=== PATIENT | male | born 1990 | race Caucasian/White ===

== ENCOUNTER 2017-08-22 05:34 | Emergency (ER) | payer BC ==
[2017-08-22] MEDS ORDERED: Metoclopramide 10 MG/2 ML SDV IVPUSH ONE (05:47)
[2017-08-22] MEDS ORDERED: HYDROmorphone 1 MG/ML Syringe IVPUSH ONE (05:47)
--- NOTE | 2017-08-22 05:53 | EDM.PDOC ---
ED HPI GENERAL MEDICAL PROBLEM - General Chief Complaint: Flank Pain Stated Complaint: RIGHT FLANK PAIN Time Seen by Provider: 08/22/17 05:47 Source of Information: Reports: Patient History Limitations: Reports: No Limitations - History of Present Illness INITIAL COMMENTS - FREE TEXT/NARRATIVE: 27-year-old male attends the ED with acute onset of severe right flank pain radiating slightly into the right upper abdomen. States he woke around 0420 hrs. this morning with pain that gave him a stronger urge to void. He was able to void but did not notice any blood in his urine. States he has a feeling of need to vomit but has not done so. He also has a feeling of need to defecate but has not had a bowel movement. He's had a previous right-sided kidney stone about 3 years ago up in [place] that required lithotripsy. No problems since that time. Onset: Today Onset Date: 08/22/17 Onset Time: 04:20 Duration: Hour(s): Location: Reports: Abdomen (Right flank right upper abdomen.), Back Quality: Reports: Ache, Sharp, Stabbing Severity: Severe Improves with: Reports: None (Current pain is 8 out of 10.) Worsens with: Reports: None Context: Reports: Other (Awoke from sleep with sudden onset of right flank pain. ). Denies: Activity, Exercise, Lifting, Sick Contact, Trauma Associated Symptoms: Reports: Nausea/Vomiting. Denies: Confusion, Chest Pain, Cough, cough w sputum, Diaphoresis, Fever/Chills, Headaches, Loss of Appetite, Malaise, Rash, Seizure (Nausea with no vomiting), Shortness of Breath Treatments CAREGIVERS NON MEDICAL: Reports: Other (see below) (None.) Right Flank Pain Score (Numeric/FACES): 8 - Related Data Allergies Allergy/AdvReac Type Severity Reaction Status Date / Time Penicillins Allergy Vomiting Verified 08/22/17 05:42 Home Meds: Home Meds Tamsulosin HCl [Flomax] 0.4 mg PO DAILY #5 cap.er.24h 08/22/17 [Rx] oxyCODONE HCl/Acetaminophen [Percocet 5-325 mg Tablet] 1 - 2 each PO Q4H PRN # 16 tablet 08/22/17 [Rx] Past Medical History Genitourinary History: Reports: Renal Calculus - Past Surgical History Male Surgical History: Reports: Kidney Stone Extraction Social & Family History - Family History Family Medical History: Noncontributory - Tobacco Use Smoking Status *Q: Never Smoker - Living Situation & Occupation Living situation: Reports: Occupation: Employed ED ROS GENERAL - Review of Systems Review Of Systems: See Below Constitutional: Reports: No Symptoms HEENT: Reports: No Symptoms Respiratory: Reports: No Symptoms Cardiovascular: Reports: No Symptoms Endocrine: Reports: No Symptoms GI/Abdominal: Reports: Abdominal Pain (Right upper abdominal pain but pain initiates in his right flank.) : Reports: Flank Pain (Right flank pain) Musculoskeletal: Reports: No Symptoms Skin: Reports: No Symptoms Neurological: Reports: No Symptoms Psychiatric: Reports: No Symptoms Hematologic/Lymphatic: Reports: No Symptoms Immunologic: Reports: No Symptoms ED EXAM, RENAL/ - Physical Exam Exam: See Below Exam Limited By: No Limitations General Appearance: Alert, WD/WN, Moderate Distress (Very uncomfortable. Rolling around the bed.) Eye Exam: Bilateral Eye: Normal Inspection (No jaundice.) Respiratory/Chest: No Respiratory Distress, Lungs Clear, Normal Breath Sounds, No Accessory Muscle Use Cardiovascular: Normal Peripheral Pulses, Regular Rate, Rhythm, No Edema, No Murmur GI/Abdominal: Normal Bowel Sounds, Soft, Non-Tender, No Organomegaly, No Abnormal Bruit, No Mass, Pelvis Stable, Other (No surgical scars) (Male) Exam: No Hernia Back Exam: CVA Tenderness (R). No: CVA Tenderness (L), Decreased Range of Motion, Muscle Spasm (Mild.) Extremities: Normal Inspection, Normal Range of Motion, Non-Tender, No Pedal Edema Neurological: Alert, Oriented, CN II-XII Intact, Normal Cognition Psychiatric: Normal Affect, Normal Mood Skin Exam: Warm, Dry, Intact, Normal Color, No Rash Course - Vital Signs Last Recorded V/S: Last Vital Signs Temp 35.9 C 08/22/17 05:39 Pulse 77 08/22/17 05:39 Resp 16 08/22/17 05:39 BP 168/98 H 08/22/17 05:39 Pulse Ox 98 08/22/17 05:39 - Orders/Labs/Meds Orders: Active Orders 24 hr Category Date Time Status Abdomen Pelvis wo Cont [CT] Stat Exams 08/22/17 05:48 Ordered URINALYSIS W/MICROSCOPIC [UA W/MICROSCOPIC] [URIN] Stat Lab 08/22/17 05:48 Uncollected Ketorolac [Toradol] Med 08/22/17 06:00 Ordered 30 mg IVPUSH ONETIME Sodium Chloride 0.9% @ 150 MLS/HR (1000ml Bag) Med 08/22/17 06:00 Ordered Sodium Chloride 0.9% [Normal Saline] 1,000 ml IV ASDIRECTED Medication Orders Sodium Chloride (Normal Saline) 1,000 mls @ 150 mls/hr IV ASDIRECTED AVE Last Admin: 08/22/17 05:57 Dose: 150 mls/hr Ketorolac Tromethamine (Toradol) [address] Last Admin: 08/22/17 06:01 Dose: 30 mg Meds: Medications Generic Name Dose Route Start Last Admin Trade Name Freq PRN Reason Stop Dose Admin Sodium Chloride 1,000 mls @ 150 mls/hr 08/22/17 06:00 08/22/17 05:57 Normal Saline IV 150 mls/hr ASDIRECTED AVE Administration Ketorolac Tromethamine 30 mg 08/22/17 06:00 08/22/17 06:01 [address]adol IVPUSH [address] Administration Discontinued Medications Generic Name Dose Route Start Last Admin Trade Name Freq PRN Reason Stop Dose Admin Hydromorphone HCl 1 mg 08/22/17 05:47 08/22/17 05:57 Dilaudid IVPUSH 08/22/17 05:48 1 mg ONETIME ONE Administration Metoclopramide HCl 10 mg 08/22/17 05:47 08/22/17 05:59 Reglan IVPUSH 08/22/17 05:48 10 mg ONETIME ONE Administration - Radiology Interpretation Free Text/Narrative:: 27-year-old male presents the ED with acute onset of severe right flank pain radiating slightly into the right upper abdomen. States he woke around 0420 hrs. this morning with this pain that gave him a strong sensation of need to void. He did void but did not know was any blood in his urine. Subtotally he's been nauseated without any emesis. He has a feeling of need to defecate as well. He gives a history of a kidney stone on the right side about 3 years ago up in [place]. Apparently this was a very large stone and required lithotripsy to remove it. Is not had any subsequent episodes. Plan IV normal saline at 150 mils per hour. Given Dilaudid 1 mg IV with Toradol 30 mg IV and Reglan 10 mg IV for acute pain relief. Plan will be for urinalysis when one becomes available. CT scan of abdomen and pelvis to identify size and [place] of stone and whether or not is going to pass on its own. - Re-Assessments/Exams Free Text/Narrative Re-Assessment/Exam: 08/22/17 06:50 CT reveals a 7.5 mm stone right at the UPJ which is likely to probable up and down in the renal pelvis until it engages the ureter. It is unlikely to pass on its own due to its size and I therefore instructed the patient to call around today to urology services at [facility] and/or [place]. Ideally would be nice to get into lithotripsy on Friday next week. His is due to have a baby next Friday. The meantime he will be prescribed Percocet tabs 5/3/25 milligrams one or 2 every 4-6 hours needed for pain relief. Flomax 0.4 mg once daily 5 tablets. Departure - Departure Time of Disposition: 06:48 Disposition: Home, Self-Care 01 Condition: Fair Clinical Impression: Renal colic on right side - Discharge Information Prescriptions: oxyCODONE HCl/Acetaminophen [Percocet 5-325 mg Tablet] 1 - 2 each PO Q4H PRN # 16 tablet PRN Reason: pain relief. Tamsulosin HCl [Flomax] 0.4 mg PO DAILY #5 cap.er.24h Instructions: Kidney Stones, [id number] Referrals: PCP,None [Primary Care Provider] - Forms: ED Department Discharge Additional Instructions: ED HPI GENERAL MEDICAL PROBLEM - General Chief Complaint: Flank Pain Stated Complaint: RIGHT FLANK PAIN Time Seen by Provider: 08/22/17 05:47 Source of Information: Reports: Patient History Limitations: Reports: No Limitations - History of Present Illness INITIAL COMMENTS - FREE TEXT/NARRATIVE: 27-year-old male attends the ED with acute onset of severe right flank pain radiating slightly into the right upper abdomen. States he woke around 0420 hrs. this morning with pain that gave him a stronger urge to void. He was able to void but did not notice any blood in his urine. States he has a feeling of need to vomit but has not done so. He also has a feeling of need to defecate but has not had a bowel movement. He's had a previous right-sided kidney stone about 3 years ago up in [place] that required lithotripsy. No problems since that time. Onset: Today Onset Date: 08/22/17 Onset Time: 04:20 Duration: Hour(s): Location: Reports: Abdomen (Right flank right upper abdomen.), Back Quality: Reports: Ache, Sharp, Stabbing Severity: Severe Improves with: Reports: None (Current pain is 8 out of 10.) Worsens with: Reports: None Context: Reports: Other (Awoke from sleep with sudden onset of right flank pain. ). Denies: Activity, Exercise, Lifting, Sick Contact, Trauma Associated Symptoms: Reports: Nausea/Vomiting. Denies: Confusion, Chest Pain, Cough, cough w sputum, Diaphoresis, Fever/Chills, Headaches, Loss of Appetite, Malaise, Rash, Seizure (Nausea with no vomiting), Shortness of Breath Treatments CAREGIVERS NON MEDICAL: Reports: Other (see below) (None.) Right Flank Pain Score (Numeric/FACES): 8 - Related Data Allergies Allergy/AdvReac Type Severity Reaction Status Date / Time Penicillins Allergy Vomiting Verified 08/22/17 05:42 Home Meds: Home Meds Tamsulosin HCl [Flomax] 0.4 mg PO DAILY #5 cap.er.24h 08/22/17 [Rx] oxyCODONE HCl/Acetaminophen [Percocet 5-325 mg Tablet] 1 - 2 each PO Q4H PRN # 16 tablet 08/22/17 [Rx] Past Medical History Genitourinary History: Reports: Renal Calculus - Past Surgical History Male Surgical History: Reports: Kidney Stone Extraction Social & Family History - Family History Family Medical History: Noncontributory - Tobacco Use Smoking Status *Q: Never Smoker - Living Situation & Occupation Living situation: Reports: Occupation: Employed ED ROS GENERAL - Review of Systems Review Of Systems: See Below Constitutional: Reports: No Symptoms HEENT: Reports: No Symptoms Respiratory: Reports: No Symptoms Cardiovascular: Reports: No Symptoms Endocrine: Reports: No Symptoms GI/Abdominal: Reports: Abdominal Pain (Right upper abdominal pain but pain initiates in his right flank.) : Reports: Flank Pain (Right flank pain) Musculoskeletal: Reports: No Symptoms Skin: Reports: No Symptoms Neurological: Reports: No Symptoms Psychiatric: Reports: No Symptoms Hematologic/Lymphatic: Reports: No Symptoms Immunologic: Reports: No Symptoms ED EXAM, RENAL/ - Physical Exam Exam: See Below Exam Limited By: No Limitations General Appearance: Alert, WD/WN, Moderate Distress (Very uncomfortable. Rolling around the bed.) Eye Exam: Bilateral Eye: Normal Inspection (No jaundice.) Respiratory/Chest: No Respiratory Distress, Lungs Clear, Normal Breath Sounds, No Accessory Muscle Use Cardiovascular: Normal Peripheral Pulses, Regular Rate, Rhythm, No Edema, No Murmur GI/Abdominal: Normal Bowel Sounds, Soft, Non-Tender, No Organomegaly, No Abnormal Bruit, No Mass, Pelvis Stable, Other (No surgical scars) (Male) Exam: No Hernia Back Exam: CVA Tenderness (R). No: CVA Tenderness (L), Decreased Range of Motion, Muscle Spasm (Mild.) Extremities: Normal Inspection, Normal Range of Motion, Non-Tender, No Pedal Edema Neurological: Alert, Oriented, CN II-XII Intact, Normal Cognition Psychiatric: Normal Affect, Normal Mood Skin Exam: Warm, Dry, Intact, Normal Color, No Rash Course - Vital Signs Last Recorded V/S: Last Vital Signs Temp 35.9 C 08/22/17 05:39 Pulse 77 08/22/17 05:39 Resp 16 08/22/17 05:39 BP 168/98 H 08/22/17 05:39 Pulse Ox 98 08/22/17 05:39 - Orders/Labs/Meds Orders: Active Orders 24 hr Category Date Time Status Abdomen Pelvis wo Cont [CT] Stat Exams 08/22/17 05:48 Ordered URINALYSIS W/MICROSCOPIC [UA W/MICROSCOPIC] [URIN] Stat Lab 08/22/17 05:48 Uncollected Ketorolac [Toradol] Med 08/22/17 06:00 Ordered 30 mg IVPUSH ONETIME Sodium Chloride 0.9% @ 150 MLS/HR (1000ml Bag) Med 08/22/17 06:00 Ordered Sodium Chloride 0.9% [Normal Saline] 1,000 ml IV ASDIRECTED Medication Orders Sodium Chloride (Normal Saline) 1,000 mls @ 150 mls/hr IV ASDIRECTED AVE Last Admin: 08/22/17 05:57 Dose: 150 mls/hr Ketorolac Tromethamine (Toradol) [address] Last Admin: 08/22/17 06:01 Dose: 30 mg Meds: Medications Generic Name Dose Route Start Last Admin Trade Name Rosario PRN Reason Stop Dose Admin Sodium Chloride 1,000 mls @ 150 mls/hr 08/22/17 06:00 08/22/17 05:57 Normal Saline IV 150 mls/hr ASDIRECTED AVE Administration Ketorolac Tromethamine 30 mg 08/22/17 06:00 08/22/17 06:01 Toradol IVPUSH [address] Administration Discontinued Medications Generic Name Dose Route Start Last Admin Trade Name Freq PRN Reason Stop Dose Admin Hydromorphone HCl 1 mg 08/22/17 05:47 08/22/17 05:57 Dilaudid IVPUSH 08/22/17 05:48 1 mg ONETIME ONE Administration Metoclopramide HCl 10 mg 08/22/17 05:47 08/22/17 05:59 Reglan IVPUSH 08/22/17 05:48 10 mg ONETIME ONE Administration - Radiology Interpretation Free Text/Narrative:: 27-year-old male presents the ED with acute onset of severe right flank pain radiating slightly into the right upper abdomen. States he woke around 0420 hrs. this morning with this pain that gave him a strong sensation of need to void. He did void but did not know was any blood in his urine. Subtotally he's been nauseated without any emesis. He has a feeling of need to defecate as well. He gives a history of a kidney stone on the right side about 3 years ago up in [place]. Apparently this was a very large stone and required lithotripsy to remove it. Is not had any subsequent episodes. Plan IV normal saline at 150 mils per hour. Given Dilaudid 1 mg IV with Toradol 30 mg IV and Reglan 10 mg IV for acute pain relief. Plan will be for urinalysis when one becomes available. CT scan of abdomen and pelvis to identify size and [place] of stone and whether or not is going to pass on its own. Departure - Departure Disposition: Home, Self-Care 01 Condition: Fair Clinical Impression: Renal colic on right side - Discharge Information Prescriptions: oxyCODONE HCl/Acetaminophen [Percocet 5-325 mg Tablet] 1 - 2 each PO Q4H PRN # 16 tablet PRN Reason: pain relief. Tamsulosin HCl [Flomax] 0.4 mg PO DAILY #5 cap.er.24h Referrals: PCP,None [Primary Care Provider] - Forms: ED Department Discharge - My Orders Last 24 Hours: My Active Orders 08/22/17 05:48 Abdomen Pelvis wo Cont [CT] Stat URINALYSIS W/MICROSCOPIC [UA W/MICROSCOPIC] [URIN] Stat 08/22/17 06:00 Ketorolac [Toradol] 30 mg IVPUSH ONETIME Sodium Chloride 0.9% @ 150 MLS/HR (1000ml Bag) Sodium Chloride 0.9% [Normal Saline] 1,000 ml IV ASDIRECTED - Assessment/Plan Last 24 Hours: My Active Orders 08/22/17 05:48 Abdomen Pelvis wo Cont [CT] Stat URINALYSIS W/MICROSCOPIC [UA W/MICROSCOPIC] [URIN] Stat 08/22/17 06:00 Ketorolac [Toradol] 30 mg IVPUSH ONETIME Sodium Chloride 0.9% @ 150 MLS/HR (1000ml Bag) Sodium Chloride 0.9% [Normal Saline] 1,000 ml IV ASDIRECTED Care Plan Goals: Evaluation in the emergency room today in regards to development of acute right sided flank pain that woke him from sleep. CT confirms evidence of a large 7.5 mm stone that is just starting to answer the renal pelvis out of the kidney. The stone is likely to bottle up and down and as it tries to enter the ureter on its way down to the bladder. He will be pain free until stone engages the ureter at which time you will need to take pain medication. Take 2 Percocets every 4 hours as needed. This stone is too large to pass on its own. I would suggest arranging a urology consultation as soon as possible ideally on Friday for potential lithotripsy. At [facility] in [place] please call [phone] to arrange for urology consultation. At [facility] please call to arrange a urology consultation. - My Orders Last 24 Hours: My Active Orders 08/22/17 05:48 Abdomen Pelvis wo Cont [CT] Stat URINALYSIS W/MICROSCOPIC [UA W/MICROSCOPIC] [URIN] Stat 08/22/17 06:00 Ketorolac [Toradol] 30 mg IVPUSH ONETIME Sodium Chloride 0.9% @ 150 MLS/HR (1000ml Bag) Sodium Chloride 0.9% [Normal Saline] 1,000 ml IV ASDIRECTED - Assessment/Plan Last 24 Hours: My Active Orders 08/22/17 05:48 Abdomen Pelvis wo Cont [CT] Stat URINALYSIS W/MICROSCOPIC [UA W/MICROSCOPIC] [URIN] Stat 08/22/17 06:00 Ketorolac [Toradol] 30 mg IVPUSH ONETIME Sodium Chloride 0.9% @ 150 MLS/HR (1000ml Bag) Sodium Chloride 0.9% [Normal Saline] 1,000 ml IV ASDIRECTED
[2017-08-22] MEDS ORDERED: Sodium Chloride 0.9% 1,000 ML IV SCH (06:00)
[2017-08-22] MEDS ORDERED: Ketorolac 30 MG/ML SDV IVPUSH SCH (06:00)
--- NOTE | 2017-08-22 09:05 | CT ---
CT abdomen and pelvis Technique: Multiple axial sections were obtained from above the dome of the diaphragm inferiorly through the pubic symphysis. Intravenous and oral contrast was not utilized. Reconstructed coronal and sagittal images were obtained. Comparison: No prior abdominal imaging. Findings: Central collecting system within the right kidney is mildly dilated. This finding is caused by an obstructing stone at the UPJ measuring up to 8 mm. Nonobstructing calculi seen within the right kidney. Left kidney shows a small nonobstructing stone. No ureteral dilatation or other ureteral calculus is seen. Visualized lung bases show nothing acute. Noncontrast appearance of the liver and spleen appear within normal limits. Adrenal glands show no nodule. Pancreas is within normal limits. Gallbladder contains no calcified gallstones. Aorta shows no aneurysmal dilatation. Appendix is seen which is normal. No retroperitoneal adenopathy or mesenteric abnormalities are seen. No pelvic mass or adenopathy is seen. Impression: 1. Central hydronephrosis of the right kidney caused by an obstructing stone measuring approximately 8 mm at the UPJ. 2. Several nonobstructing calculi are seen within both kidneys. Diagnostic code #3 I agree with preliminary report issued by [employer] ([facility] report finalized on 08/22/17, 8:06 AM Central Time)
== END 2017-08-22 07:10 | disposition home or self-care (01) ==
LOC: JD.ED 05:34
DX: N13.2 Hydronephrosis with renal and ureteral calculous obstruction (principal); Z79.899 Other long term (current) drug therapy; Z88.0 Allergy status to penicillin
CPT/HCPCS: 74176; 96361; 96374; 96375; 99284; J1170; J1885; J2765; J7040

== ENCOUNTER 2017-08-26 05:10 | Emergency (ER) | payer BC ==
--- NOTE | 2017-08-26 05:29 | EDM.PDOC ---
ED HPI GENERAL MEDICAL PROBLEM - General Chief Complaint: Genitourinary Problem Stated Complaint: RIGHT SIDE PAIN Time Seen by Provider: 08/26/17 05:19 - History of Present Illness INITIAL COMMENTS - FREE TEXT/NARRATIVE: 27-year-old male returns emergency room with right-sided abdominal pain. Patient seen on the diagnosed with a fairly large kidney stone in the right renal pelvis. The patient had lithotripsy of this on Friday and has done well up until yesterday when he started getting worsening pain on this side. The patient has a stent in place on Friday he did inadvertently tugging on the string a little bit but not hard and did not have any problems after that. He has not noticed any fevers or chills. The patient took 2 Percocet at about 3 this morning without much improvement. Right Flank Pain Score (Numeric/FACES): 8 - Related Data Allergies Allergy/AdvReac Type Severity Reaction Status Date / Time Penicillins Allergy Vomiting Verified 08/22/17 05:42 Home Meds: Home Meds Tamsulosin HCl [Flomax] 0.4 mg PO DAILY #5 cap.er.24h 08/22/17 [Rx] oxyCODONE HCl/Acetaminophen [Percocet 5-325 mg Tablet] 1 - 2 each PO Q4H PRN # 16 tablet 08/22/17 [Rx] Acetaminophen/oxyCODONE [Percocet 325-5 MG] 1 - 2 tab PO Q4H PRN #16 tablet 05/05 [Rx] Levofloxacin [Levaquin] 500 mg PO DAILY 08/26/17 [History] Past Medical History Genitourinary History: Reports: Renal Calculus - Past Surgical History Male Surgical History: Reports: Kidney Stone Extraction Social & Family History - Family History Family Medical History: Noncontributory - Tobacco Use Smoking Status *Q: Never Smoker - Living Situation & Occupation Living situation: Reports: Occupation: Employed ED ROS GENERAL - Review of Systems Review Of Systems: See Below Constitutional: Reports: No Symptoms HEENT: Reports: No Symptoms Respiratory: Reports: No Symptoms Cardiovascular: Reports: No Symptoms GI/Abdominal: Reports: Abdominal Pain, Nausea. Denies: Constipation, Diarrhea, Vomiting : Reports: Hematuria ED EXAM, RENAL/ - Physical Exam Exam: See Below Exam Limited By: No Limitations General Appearance: Alert, No Apparent Distress Respiratory/Chest: No Respiratory Distress, Lungs Clear, Normal Breath Sounds Cardiovascular: Regular Rate, Rhythm, No Edema, No Murmur GI/Abdominal: Normal Bowel Sounds, Soft, Other (Palpation does not make his pain any worse no rigidity rebound or guarding) Back Exam: Normal Inspection. No: CVA Tenderness (L), CVA Tenderness (R) Extremities: Normal Inspection, No Pedal Edema Course - Vital Signs Last Recorded V/S: Last Vital Signs Temp 35.9 C 08/26/17 05:16 Pulse 70 08/26/17 05:16 Resp 16 08/26/17 05:16 BP 176/102 H 08/26/17 05:16 Pulse Ox 99 08/26/17 05:16 - Orders/Labs/Meds Orders: Active Orders 24 hr Category Date Time Status KUB [Abdomen 1V Flat] [CR] Stat Exams 08/26/17 06:04 Taken Labs: Laboratory Tests 08/26/17 08/26/17 08/26/17 Range/Units 05:45 06:01 06:01 WBC 6.17 (4.23-9.07) K/mm3 RBC 4.85 (4.63-6.08) M/mm3 Hgb 14.4 (13.7-17.5) gm/L Hct 40.4 (40.1-51.0) % MCV 83.3 (79.0-92.2) fl MCH 29.7 (25.7-32.2) pg MCHC 35.6 H (32.2-35.5) g/dl RDW Std Deviation 37.9 (35.1-43.9) fL Plt Count 227 (163-337) K/mm3 MPV 10.2 (9.4-12.3) fl Neutrophils % (Manual) 47 (40-60) % Band Neutrophils % 0 (0-10) % Lymphocytes % (Manual) 48 H (20-40) % Atypical Lymphs % 0 % Monocytes % (Manual) 2 (2-10) % Eosinophils % (Manual) 2 (0.8-7.0) % Basophils % (Manual) 1 (0.2-1.2) Platelet Estimate Adequate RBC Morph Comment Normal Sodium 143 (136-145) mEq/L Potassium 4.0 (3.5-5.1) mEq/L Chloride 104 (98-107) mEq/L Carbon Dioxide 29 (21-32) mEq/L Anion Gap 14.0 (5-15) BUN 11 (7-18) mg/dL Creatinine 1.0 (0.7-1.3) mg/dL Est Cr Clr Drug Dosing 125.40 mL/min Estimated GFR (MDRD) > 60 (>60) mL/min BUN/Creatinine Ratio 11.0 L (14-18) Glucose 97 (74-106) mg/dL Calcium 9.1 (8.5-10.1) mg/dL Urine Color [place] H (Yellow) Urine Appearance Slt cloudy H (Clear) Urine pH 6.5 (5.0-8.0) Ur Specific [place] > or = 1.030 (1.005-1.030) Urine Protein 3+ H (Negative) Urine Glucose (UA) Negative (Negative) Urine Ketones Negative (Negative) Urine Occult Blood 3+ H (Negative) Urine Nitrite Negative (Negative) Urine Bilirubin Negative (Negative) Urine Urobilinogen 0.2 (0.2-1.0) Ur Leukocyte Esterase Negative (Negative) Urine RBC >100 H (0-5) /hpf Urine WBC 0-5 (0-5) /hpf Ur Epithelial Cells 0-5 (0-5) /hpf Urine Bacteria Few (FEW) /hpf Urine Mucus Few (FEW) /hpf Meds: Medications Discontinued Medications Generic Name Dose Route Start Last Admin Trade Name Freq PRN Reason Stop Dose Admin Ketorolac Tromethamine 30 mg 08/26/17 06:04 08/26/17 06:13 Toradol IVPUSH 08/26/17 06:05 30 mg ONETIME ONE Administration Ondansetron HCl 4 mg 08/26/17 07:06 Zofran Odt PO 08/26/17 07:07 ONETIME ONE Ondansetron HCl 4 mg 08/26/17 07:06 Zofran Odt PO 08/26/17 07:07 ONETIME ONE - Re-Assessments/Exams Free Text/Narrative Re-Assessment/Exam: 08/26/17 06:[address] Ortiz will check a KUB to check for stent placement. 08/26/17 07:07 KUB was obtained stent is in good position the patient received Toradol feels much better from a pain standpoint but now he has some nausea we will give him some Zofran before he goes home he has nausea medication at home Departure - Departure Time of Disposition: 07:08 Disposition: Home, Self-Care 01 Clinical Impression: Renal colic on right side - Discharge Information Prescriptions: Acetaminophen/oxyCODONE [Percocet 325-5 MG] 1 - 2 tab PO Q4H PRN #16 tablet PRN Reason: Abdominal Pain Referrals: PCP,None [Primary Care Provider] - Forms: ED Department Discharge Additional Instructions: Return to the emergency room with any questions problems worsening symptoms. Continue medications as before. I have given you a refill for your pain medication. Use as needed allow 12 hours after using this medication before driving or returning to work. - My Orders Last 24 Hours: My Active Orders 08/26/17 06:04 KUB [Abdomen 1V Flat] [CR] Stat - Assessment/Plan Last 24 Hours: My Active Orders 08/26/17 06:04 KUB [Abdomen 1V Flat] [CR] Stat
[2017-08-26] MEDS ORDERED: Ketorolac 30 MG/ML SDV IVPUSH ONE (06:04)
[2017-08-26] MEDS ORDERED: Ondansetron 4 MG Tab.DIS PO ONE ×2 (07:06)
--- NOTE | 2017-08-26 07:17 | CR ---
Abdomen: Supine view of the abdomen was obtained. Comparison: Prior CT renal stone exam of 08/22/17. Right ureteral stent has been placed. Gas and stool overlies the kidneys making evaluation for calcifications difficult. No definite abnormal calcifications are seen along the course of the ureteral stent. Bowel gas pattern appears normal. Bony structures are unremarkable. Impression: 1. Right ureteral stent has been placed with proximal end in the expected area of the renal pelvis and distal end in the expected region of the bladder. 2. No definite abnormal calcifications are seen along the course of the ureters. Diagnostic code #2
== END 2017-08-26 07:30 | disposition home or self-care (01) ==
LOC: JD.ED 05:10
DX: N23 Unspecified renal colic (principal); Z88.0 Allergy status to penicillin; Z79.899 Other long term (current) drug therapy
CPT/HCPCS: 36415; 74018; 80048; 81001; 85025; 96374; 99284; A9270; J1885

== ENCOUNTER 2018-01-11 13:19 | Emergency (ER) | payer BC ==
[2018-01-11] MEDS ORDERED: Sodium Chloride 0.9% 10 ML Syringe FLUSH PRN (14:36)
[2018-01-11] MEDS ORDERED: HYDROmorphone 0.5 MG/0.5 ML SYRINGE IVPUSH ONE (14:36)
[2018-01-11] MEDS ORDERED: Tamsulosin 0.4 MG Cap.ER PO ONE (14:36)
[2018-01-11] MEDS ORDERED: Ondansetron 4 MG/2 ML SDV IVPUSH ONE (14:36)
--- NOTE | 2018-01-11 14:40 | EDM.PDOC ---
ED HPI GENERAL MEDICAL PROBLEM - General Chief Complaint: Flank Pain Stated Complaint: POSS. KIDNEY STONE Time Seen by Provider: 01/11/18 13:54 Source of Information: Reports: Patient History Limitations: Reports: No Limitations - History of Present Illness INITIAL COMMENTS - FREE TEXT/NARRATIVE: Patient has a history of recurrent kidney stones. Patient states on 2 separate occasions had the kidney stones retrieved. as of recent December 11 had lithotripsy with stent placed. Stones measured approximately 7.6 mm on the right side. Stent was removed 2 weeks ago on December 25. Since then he has been doing well up until last night. States approximately 4:30 in the morning developed right-sided flank pain consistent with previous episodes of passing a kidney stone. Pain has not moved and is also worsened. He has taken ibuprofen and Tylenol with little relief. Unclear the size of the stone that remained within his right kidney. The urologist said he was not worried about it. Last CT was obtained December 25. He has a follow-up appointment with nephrology in January. Pain is moderate to severe. He denies any fever, nausea/vomiting, dysuria, or any additional complaints. No alexi blood present. States normally with admission to the ED gets IV fluids and also IV pain meds which gets pain under control and normally can take Tylenol and ibuprofen at home. He does not like any narcotics due to the increased nausea that it precipitates. Right Flank Pain Score (Numeric/FACES): 7 - Related Data Allergies Allergy/AdvReac Type Severity Reaction Status Date / Time oxycodone AdvReac Nausea and Verified 01/11/18 13:33 Vomiting Penicillins AdvReac Vomiting Verified 08/27/17 08:39 Home Meds: Home Meds . [No Known Home Meds] 01/11/18 [History] Past Medical History Genitourinary History: Reports: Renal Calculus - Past Surgical History Male Surgical History: Reports: Kidney Stone Extraction, Lithotripsy ([facility]), Ureteral Stent Social & Family History - Family History Family Medical History: Noncontributory - Tobacco Use Smoking Status *Q: Never Smoker - Recreational Drug Use Recreational Drug Use: No - Living Situation & Occupation Living situation: Reports: Occupation: Employed ED ROS GENERAL - Review of Systems Review Of Systems: ROS reveals no pertinent complaints other than HPI. ED EXAM, RENAL/ - Physical Exam Exam: See Below Exam Limited By: No Limitations General Appearance: Alert, WD/WN, Mild Distress Ears: Hearing Grossly Normal Nose: Normal Inspection Throat/Mouth: Normal Voice, No Airway Compromise Neck: Normal Inspection, Supple Respiratory/Chest: No Respiratory Distress, Lungs Clear, Normal Breath Sounds, No Accessory Muscle Use, Chest Non-Tender Cardiovascular: Normal Peripheral Pulses, Regular Rate, Rhythm GI/Abdominal: Normal Bowel Sounds, Soft, No Organomegaly, No Distention, Tender (right flank and right CVA) (Male) Exam: Deferred (no complaints) Back Exam: Normal Inspection, CVA Tenderness (R). No: CVA Tenderness (L), Muscle Spasm, Paraspinal Tenderness, Vertebral Tenderness Extremities: Normal Inspection Neurological: Alert, Oriented, CN II-XII Intact, Normal Cognition, No Motor/ Sensory Deficits Psychiatric: Normal Affect, Normal Mood Skin Exam: Warm, Dry, Intact, Normal Color, No Rash Course - Vital Signs Last Recorded V/S: Last Vital Signs Temp 98.6 F 01/11/18 13:29 Pulse 73 01/11/18 13:29 Resp 16 01/11/18 13:29 BP 157/102 H 01/11/18 13:29 Pulse Ox 100 01/11/18 13:29 - Orders/Labs/Meds Orders: Active Orders 24 hr Category Date Time Status Peripheral IV Care [RC] . DIRECTED Care 01/11/18 14:36 Active Peripheral IV Insertion Adult [OM.PC] Routine Oth 01/11/18 14:36 Ordered Labs: Laboratory Tests 01/11/18 01/11/18 01/11/18 Range/Units 13:50 14:53 14:53 WBC 7.62 (4.23-9.07) K/mm3 RBC 5.04 (4.63-6.08) M/mm3 Hgb 14.4 (13.7-17.5) gm/L Hct 40.9 (40.1-51.0) % MCV 81.2 (79.0-92.2) fl MCH 28.6 (25.7-32.2) pg MCHC 35.2 (32.2-35.5) g/dl RDW Std Deviation 35.8 (35.1-43.9) fL Plt Count 189 (163-337) K/mm3 MPV 10.8 (9.4-12.3) fl Neutrophils % (Manual) 72 H (40-60) % Band Neutrophils % 0 (0-10) % Lymphocytes % (Manual) 23 (20-40) % Atypical Lymphs % 0 % Monocytes % (Manual) 5 (2-10) % Eosinophils % (Manual) 0 L (0.8-7.0) % Basophils % (Manual) 0 L (0.2-1.2) Platelet Estimate Adequate Plt Morphology Comment Normal RBC Morph Comment Normal Sodium 138 (136-145) mEq/L Potassium 3.5 (3.5-5.1) mEq/L Chloride 102 (98-107) mEq/L Carbon Dioxide 27 (21-32) mEq/L Anion Gap 12.5 (5-15) BUN 12 (7-18) mg/dL Creatinine 1.3 (0.7-1.3) mg/dL Est Cr Clr Drug Dosing 96.46 mL/min Estimated GFR (MDRD) > 60 (>60) mL/min BUN/Creatinine Ratio 9.2 L (14-18) Glucose 90 (74-106) mg/dL Calcium 9.5 (8.5-10.1) mg/dL Total Bilirubin 0.7 (0.2-1.0) mg/dL AST 33 (15-37) U/L ALT 54 (16-63) U/L Alkaline Phosphatase 58 (46-116) U/L C-Reactive Protein < 0.2 (<1.0) mg/dL Total Protein 7.3 (6.4-8.2) g/dl Albumin 4.0 (3.4-5.0) g/dl Globulin 3.3 gm/dL Albumin/Globulin Ratio 1.2 (1-2) Urine Color Yellow (Yellow) Urine Appearance Clear (Clear) Urine pH 6.5 (5.0-8.0) Ur Specific [place] 1.015 (1.005-1.030) Urine Protein Negative (Negative) Urine Glucose (UA) Negative (Negative) Urine Ketones Negative (Negative) Urine Occult Blood Negative (Negative) Urine Nitrite Negative (Negative) Urine Bilirubin Negative (Negative) Urine Urobilinogen 0.2 (0.2-1.0) Ur Leukocyte Esterase Negative (Negative) Urine RBC Not seen (0-5) /hpf Urine WBC 0-5 (0-5) /hpf Ur Epithelial Cells Not seen (0-5) /hpf Urine Bacteria Not seen (FEW) /hpf Urine Mucus Not seen (FEW) /hpf Meds: Medications Discontinued Medications Generic Name Dose Route Start Last Admin Trade Name Rosario PRN Reason Stop Dose Admin Hydromorphone HCl 0.5 mg 01/11/18 14:36 01/11/18 14:49 Dilaudid IVPUSH 01/11/18 14:37 0.5 mg ONETIME ONE Administration Metoclopramide HCl 10 mg 01/11/18 17:06 01/11/18 17:10 Reglan IVPUSH 01/11/18 17:07 10 mg ONETIME ONE Administration Morphine Sulfate 2 mg 01/11/18 15:54 01/11/18 15:58 Morphine IVPUSH 01/11/18 15:55 2 mg ONETIME ONE Administration Ondansetron HCl 4 mg 01/11/18 14:36 01/11/18 14:49 Zofran IVPUSH 01/11/18 14:37 4 mg ONETIME ONE Administration Sodium Chloride 10 ml 01/11/18 14:36 01/11/18 14:50 Saline Flush FLUSH 10 ml ASDIRECTED PRN Administration Keep Vein Open Tamsulosin HCl 0.4 mg 01/11/18 14:36 01/11/18 14:50 Flomax PO 01/11/18 14:37 0.4 mg ONETIME ONE Administration - Re-Assessments/Exams Free Text/Narrative Re-Assessment/Exam: IV established with Dilaudid 0.5 mg IVP, Zofran 4 mg IVP, and normal saline 250 mL per hour. I have requested medical records from [facility] including: last CT of the abdomen/ pelvis and discharge summary from lithrotripsy. Labs reviewed: CBC and chemistry panel are essentially normal. CRP within normal limits. UA negative for any concerning findings. patient requested to have a CT of the abdomen and pelvis obtained. This has been ordered per renal stone protocol. CT abdomen and pelvis without IV contrast impression: Mild right hydronephrosis is secondary to 5 mm calculus proximal right ureter. Additional nonobstructive right nephrolithiasis noted. Per nursing staff patieing more pain again. Ordered morphine 2 mg IVP. Reassessment: patients pain is much improved with the above therapies. Discussed findings with the patient. He is ready to be discharged home. Patient to be discharged home with instructions, prescription for [place], and Zofran. I have also provided a urine strainer as well. The patient remained hemodynamically stable while under my care in the E.D. I discussed the concerning symptoms for which to returnto the E.D. with the patient/family. The patient/family verbalized understanding. All questions were answered. prior to discharge patient became nauseated ordered [id number] mg IVP. Departure - Departure Time of Disposition: 16:34 Disposition: Home, Self-Care 01 Condition: Good Clinical Impression: Ureteric colic, Hydronephrosis with renal calculous obstruction - Discharge Information Instructions: Renal Colic, [id number], Kidney Stones, [id number], Pain Medicine Instructions, [id number] Referrals: Virgilio Leach MD [Physician] - Forms: ED Department Discharge Additional Instructions: Take ibuprofen 600 mg every 6 hours and Tylenol 650 mg every 6 hours and alternate fashion for pain. Continue to push the fluids. Take Flomax 1 tab every day for the next 7 days. Strain all urine voids. For severe pain take [place] one tab every 6 hours. Do not take [place] and Tylenol together. Take Zofran as well for nausea vomiting one tab ODT every 6 hours as well. Follow-up with urologist next week if has not passed. Call and make an appointment. Return to the ED if you develop any new or worsening symptoms. Do not drive this evening since receiving a sedative medication. - My Orders Last 24 Hours: My Active Orders 01/11/18 14:36 Peripheral IV Care [RC] . DIRECTED Peripheral IV Insertion Adult [OM.PC] Routine - Assessment/Plan Last 24 Hours: My Active Orders 01/11/18 14:36 Peripheral IV Care [RC] . DIRECTED Peripheral IV Insertion Adult [OM.PC] Routine
[2018-01-11] MEDS ORDERED: Morphine 2 MG/ML Syringe IVPUSH ONE (15:54)
[2018-01-11] MEDS ORDERED: Metoclopramide 10 MG/2 ML SDV IVPUSH ONE (17:06)
--- NOTE | 2018-01-12 08:36 | CT ---
CT abdomen and pelvis Technique: Multiple axial sections were obtained from above the kidneys inferiorly to the pubic symphysis. Intravenous and oral contrast not utilized. Study has been performed as a ureteral stone protocol. Comparison: Prior CT abdomen and pelvis exam of 08/22/17. Findings: Obstructing calculus is noted within the proximal right ureter measuring about 5 mm located at the UPJ. This causes proximal hydronephrosis within the right kidney with mild surrounding inflammatory change. No additional ureteral calculi are seen within either the right or left ureters. Several small adjacent nonobstructing calculi seen within the inferior right kidney. Visualized portions of the liver and spleen appear within normal limits. Gallbladder contains no calcified gallstones. Adrenal glands show no nodule. Pancreas is within normal limits. Aorta shows no aneurysmal dilatation. No retroperitoneal adenopathy or mesenteric abnormalities are seen. Appendix is seen which is normal. No pelvic mass or adenopathy is seen. No bowel dilatation is seen. Bone window settings were reviewed which appear within normal limits for the patient's age. Impression: 1. Several small nonobstructing calculi are seen within the inferior right kidney. 2. 5 mm obstructing stone which is located at the right UPJ causing proximal hydronephrosis. 3. No additional abnormality is seen on noncontrast CT study of the abdomen and pelvis performed as a ureteral stone protocol. Diagnostic code #3 Agree with preliminary report issued by [email or web address] ([facility] preliminary report dictated on 01/11/18, 5:00 PM Central Time)
== END 2018-01-11 17:15 | disposition home or self-care (01) ==
LOC: JD.ED 13:19
DX: N13.2 Hydronephrosis with renal and ureteral calculous obstruction (principal); Z88.0 Allergy status to penicillin; Z88.5 Allergy status to narcotic agent; Z87.442 Personal history of urinary calculi
CPT/HCPCS: 36415; 74176; 80053; 81001; 85007; 85027; 86140; 96374; 96375; 99284; A9270; J1170; J2270; J2405; J2765; J7050